=== PATIENT | male | born 1980 ===

== ENCOUNTER 2018-02-10 01:07 | Emergency (ER) | payer OTHER ==
[2018-02-10 01:12] VITALS: BMI 30.2
[2018-02-10 01:15] VITALS: O2SAT 100
--- NOTE | 2018-02-10 01:32 | ED PDOC ---
HPI: Psych/Substance Abuse Time Seen by Provider: 02/10/18 01:12 Chief Complaint (Nursing): Alcohol Ingestion Chief Complaint (Provider): alcohol ingestion History Per: Patient History/Exam Limitations: no limitations Onset/Duration Of Symptoms: Hrs Current Symptoms Are (Timing): Still Present Additional Complaint(s): Josue Moore is a 37 year old male, with no significant past medical history, who was brought to the emergency department by [facility] for public intoxication. Patient is well known to provider for multiple visits. He has no active medical complaints at this time but is noted to have a slurred speech. PMD: None provided. Past Medical History Reviewed: Historical Data, Nursing Documentation, Vital Signs Vital Signs: Last Vital Signs Temp 98.3 F 02/10/18 01:12 Pulse 89 02/10/18 01:12 Resp 18 02/10/18 01:12 BP 111/75 02/10/18 01:12 Pulse Ox 100 02/10/18 01:12 - Medical History PMH: Anemia, Gastritis Denies: Chronic Kidney Disease - Surgical History Surgical History: No Surg Hx - Family History Family History: States: Unknown Family Hx - Immunization History Hx Tetanus Toxoid Vaccination: No Hx Influenza Vaccination: No Hx Pneumococcal Vaccination: No - Home Medications Home Medications: Ambulatory Orders Medication Instructions Recorded Ibuprofen [Motrin Tab] 800 mg PO TID PRN #15 tab 08/08/17 - Allergies Allergies/Adverse Reactions: Allergies Allergy/AdvReac Type Severity Reaction Status Date / Time No Known Allergies Allergy Verified 02/10/18 01:12 Review of Systems ROS Statement: Except As Marked, All Systems Reviewed And Found Negative Psych: Positive for: Other (slurred speech) Physical Exam - Reviewed Nursing Documentation Reviewed: Yes Vital Signs Reviewed: Yes - Physical Exam Appears: Positive for: No Acute Distress Head Exam: Positive for: ATRAUMATIC, NORMAL INSPECTION, NORMOCEPHALIC Skin: Positive for: Normal Color, Warm, Dry Eye Exam: Positive for: Normal appearance, EOMI, PERRL Neck: Positive for: Normal, Painless ROM Cardiovascular/Chest: Positive for: Regular Rate, Rhythm. Negative for: Murmur Respiratory: Positive for: Normal Breath Sounds. Negative for: Respiratory Distress Gastrointestinal/Abdominal: Positive for: Normal Exam, Soft. Negative for: Tenderness Back: Positive for: Normal Inspection. Negative for: L CVA Tenderness, R CVA Tenderness, Vertebral Tenderness Extremity: Positive for: Normal ROM (upper and lower extremities). Negative for: Deformity, Swelling Neurologic/Psych: Positive for: Alert, Other (slurred speech) - ECG O2 Sat by Pulse Oximetry: 100 (RA) Pulse Ox Interpretation: Normal Medical Decision Making Medical Decision Making: Time: 01:12 Initial Impression: 37 y/o male with alcohol intoxication Initial Plan: --Alcohol serum --Drug screen, urine --Reevaluation 06:30 -Patient is clinically sober and medically stable for discharge home ----- Scribe Attestation: Documented by Devendra Parnell, acting as a scribe for Jc Curry MD. Provider Scribe Attestation: All medical record entries made by the Scribe were at my direction and personally dictated by me. I have reviewed the chart and agree that the record accurately reflects my personal performance of the history, physical exam, medical decision making, and the department course for this patient. I have also personally directed, reviewed, and agree with the discharge instructions and disposition. Disposition - Clinical Impression Clinical Impression: Alcohol abuse with intoxication - Disposition Disposition: Routine/Home Disposition Time: 06:30 Condition: STABLE Instructions: Effects of Alcohol on Your Health Forms: [employer] (Spanish) Print Language: [id number]
[2018-02-10 02:21] LABS: BARBITURATES, UR NEGATIVE (NEGATIVE); BENZODIAZEPINES, UR NEGATIVE (NEGATIVE); OPIATES, UR NEGATIVE (NEGATIVE); PHENCYCLIDINE, UR NEGATIVE (NEGATIVE)
[2018-02-10 07:32] VITALS: BP 114/76; PULSE 71; RESP 16; TEMP 97.7
== END 2018-02-10 07:42 | disposition home or self-care (01) ==
LOC: H.ER 01:07
DX: F10.129 Alcohol abuse with intoxication, unspecified (principal)
CPT/HCPCS: 82948; 99283; G0480